=== PATIENT | male | born 1935 | race Caucasian/White ===

== ENCOUNTER 2022-10-10 16:14 | Inpatient (IN) | payer MEDICARE, SELFPAY ==
[2022-10-10] VITALS (26 sets, daily range): BP systolic 119–141; BP diastolic 66–94; PULSE 78–92; RESP 12–24; TEMP 36.6–37; O2SAT 94–100
--- NOTE | ~2022-10-10 | XR_ITS ---
EXAMINATION: XR chest 2V Exam Date/Time: 10/10/2022 18:00 CDT HISTORY: fall out of bed, Hx of aspiration Comparison: None available. RESULT: Lines, tubes, and devices: Left chest pacer with intact leads. Lungs and pleura: Patient is rotated towards the right. Senescent changes. Cardiomediastinal silhouette: Aortic tortuosity and arch calcification. Cardiomegaly. Other: No acute osseous or upper abdominal finding. Sclerotic lesion versus surgical construct in th e left proximal humeral head/shaft. Severe bilateral shoulder arthritis. Degenerative changes in the spine. IMPRESSION: No acute cardiopulmonary process. Reviewed, dictated and finalized at location K.
--- NOTE | ~2022-10-10 | CT_ITS ---
EXAMINATION: CT brain wo con DATE: 10/10/2022 17:28 INDICATION: fall from bed, unknown HI, confused? . TECHNIQUE: Computed tomography (CT) of the head was performed without intravenous contrast. The mA wa s adjusted according to patient size. Iterative reconstruction technique was employed. The dose-lengt h product was 605.33 mGy-cm. COMPARISON: None. FINDINGS: No acute intracranial hemorrhage or extra-axial fluid collection. No hydrocephalus, mass, or herniation. No acute ischemic infarct. Unremarkable dural venous sinus attenuation. No acute osseous abnormality. Small left frontal contusion. Small volume right mastoid fluid, the remaining aerated spaces are clear. Moderate atrophy and chronic white matter change. Atherosclerotic intracranial calcification. Left le ns replacement. IMPRESSION: No acute intracranial process. Reviewed, dictated and finalized at location K.
--- NOTE | ~2022-10-10 | XR_ITS ---
EXAM: XR knee RT min 4V DATE: 10/10/2022 18:08 HISTORY: R knee pain, fall out of bed . COMPARISON: None available. FINDINGS: Decreased mineralization. No fracture or dislocation. No lytic or blastic lesion. Moderate tricompartmental right knee arthritis. Chondrocalcinosis. No erosion or periosteal change. Moderate volume right knee joint fluid. Vascular calcifications. IMPRESSION: No acute osseous finding in the right knee. Moderate right knee joint effusion. Reviewed, dictated and finalized at location K. IMPRESSION: No acute osseous finding in the right knee. Moderate right knee junior nt effusion.
--- NOTE | ~2022-10-10 | US_ITS ---
EXAMINATION: US venous doppler [facility] DATE: 10/11/2022 22:26 INDICATION: Lower limb edema. TECHNIQUE: Grayscale ultrasound images without and with compression and Doppler ultrasound images of the bilateral lower extremity veins were obtained. COMPARISON: None. FINDINGS: The visualized portions of right common femoral vein, profunda (deep) femoral vein, femoral vein, pop liteal vein, peroneal veins, posterior tibial veins, and greater saphenous vein outflow are patent. The visualized portions of left common femoral vein, profunda femoral vein, femoral vein, popliteal v ein, peroneal veins, posterior tibial veins, and greater saphenous vein outflow are patent. IMPRESSION: 1. No deep venous thrombosis. Reviewed, dictated and finalized at location A.
--- NOTE | ~2022-10-10 | CT_ITS ---
EXAMINATION: CT cervical spine wo con DATE: 10/10/2022 17:28 INDICATION: fall from bed, unknown HI, c-collar in place TECHNIQUE: Computed tomography (CT) of the cervical spine was performed without intravenous contrast. Automated exposure control and iterative reconstruction technique were employed. The dose-length pro duct was 291.15 mGy-cm. COMPARISON: None. FINDINGS: Vertebral Body Alignment: Intact. Exaggerated lumbar lordosis. Grade 1 retrolisthesis at C4-5. Grade 1 anterolistheses at C6-7 and C7-T1. The listheses are presumably on a degenerative basis given the e xtensive associated degenerative change. Craniocervical and atlantoaxial alignment: Moderate degenerative change. Alignment intact. Osseous structures/fracture: No evidence of a lytic or blastic process in the visualized spine. No e vidence of acute fracture. Posterior arch surgical defects at C4 and C5. Multilevel degenerative body height loss. Vertebral body and facet fusion at C3-4. Cervical soft tissues: The paraspinal soft tissues planes are maintained. Degenerative changes: Multilevel severe degenerative disc disease. Multilevel severe facet arthropath y. Multilevel severe bilateral neural foraminal narrowing. Severe central canal stenosis at C4-5. IMPRESSION: No acute fracture or traumatic malalignment in the cervical spine. Reviewed, dictated and finalized at location K.
--- NOTE | 2022-10-10 16:19 | ECG_ITS ---
Measurements Intervals [place] Rate: 82 P: -66 NV: 142 QRS: -71 QRSD: 181 T: 100 QT: 437 QTc: 511 Interpretive Statements ELECTRONIC VENTRICULAR PACEMAKER ABNORMAL RHYTHM ECG NO PREVIOUS ECG AVAILABLE FOR COMPARISON Electronically Signed On 10-11-2022 12:07:42 CDT by Juanita Turner M.D.
--- NOTE | 2022-10-10 16:47 | ED.FALL ---
HPI - Fall General Chief Complaint: Fall <REY Radford Last Filed: 10/10/22 19:45> Stated Complaint: FALL/ UNWITNESSED <REY Radford Last Filed: 10/10/22 19:45> Source: patient, EMS and old records reviewed <REY Radford Last Filed: 10/10/22 19:45> Mode of arrival: EMS <REY Radford Last Filed: 10/10/22 19:45> Limitations: altered mental status <REY Radford Last Filed: 10/10/22 19:45> History of Present Illness HPI Narrative: Patient is an 87 y/o male who presents to the ED via EMS with report of fall. Patient lives at [facility]. Son at bedside assisted in providing information. He reports the patient attempted to get out of his bed today on his own and fell. He states patient does not ambulate on his own at baseline and fell approx 2 feet onto the ground, hitting his head. Unknown LOC. EMS was called to bring patient here. C-collar placed en route. Patient is not on any blood thinners. Son reports patient has been dealing with recurrent UTIs since July, and has intermittent episodes of confusion related to this. He has had a chronic indwelling carlson catheter since July. He has seen Dr. Youssef for this and is currently on Bactrim, started 2 days ago. Patient reports pain to R posterior knee. Denies any other areas of pain. Unable to tell me how fall occurred. <REY Radford Last Filed: 10/10/22 19:45> Related Data Allergies/Adverse Reactions: Allergies Allergy/AdvReac Type Severity Reaction Status Date / Time No Known Allergies Allergy Verified 10/10/22 18:46 <REY Radford Last Filed: 10/10/22 19:45> Review of Systems Review of Systems: ROS unobtainable: Yes unobtainable due to mental status (Limited due to dementia/altered mental status) <REY Radford Last Filed: 10/10/22 19:45> FORMERLY [facility], [facility] Past Medical History Medical History: Medical History (Updated 10/10/22 @ 19:35 by Mely Gant PA-C) History of urinary retention <Mely Gant PA-C - Last Filed: 10/10/22 19:45> Surgical History Surgical History: Surgical History (Updated 10/10/22 @ 19:35 by Mely Gant PA-C) No pertinent past surgical history <Mely Gant PA-C - Last Filed: 10/10/22 19:45> Social History Social History: Social History (Updated 10/10/22 @ 19:35 by Mely Gant PA-C) Smoking status: Never smoker <Mely Gant PA-C - Last Filed: 10/10/22 19:45> Exam Narrative: GENERAL: Elderly, frail, thin, non-toxic, in no acute distress. HEAD: Normocephalic. Small contusion to L forehead. NECK: Supple. No adenopathy, no masses. No midline spinal tenderness. RESPIRATORY: Airway patent, respirations nonlabored. Clear to auscultation bilaterally, no rales, rhonchi, wheezing. CARDIOVASCULAR: Regular rate and rhythm without murmurs, rubs, or gallops. Radial pulses 2+ and equal bilaterally. ABDOMINAL: Soft, no appreciable tenderness to palpation, nondistended, no hepatosplenomegaly. Normoactive BS. MUSCULOSKELETAL: Moves all extremities. Strength/ROM intact without gross deformities. No tenderness over hips bilaterally. SKIN: Warm, dry, normal color. No rashes. Scattered abrasions and bruising in various stages of healing. NEURO: Alert, but confused. Rambling about random events, not appropriate to conversation. Speech somewhat nasally and slurred, son reports this has been consistent since July. Cranial nerves II-XII grossly intact. No ataxic movements. PSYCHIATRIC: Occasionally agitated. <Mely Gant PA-C - Last Filed: 10/10/22 19:45> Course CRAFT SUPERINTENDENT/PA Physician Supervision For this patient encounter, I reviewed the CRAFT SUPERINTENDENT or PA documentation, treatment plan, and medical decision making; and I had [id number] time with this patient. <Chandu Ceballos MD - Last Filed: 10/10/22 18:49> Vital Signs Vital signs:
[2022-10-10 17:58] LABS: Basophils Percent Auto 0.2 % (0.2-1.2); Eosinophils Percent Auto 0.2 % (0-4.4); Hematocrit 36.2 % (42.0-52.0); Hemoglobin 11.7 g/dL (14.0-18.0); Immature Granulocyte Absolute 0.04 K/mm3 (0.00-0.031); Immature Granulocyte Percent A 0.3 % (0-0.5); Lymphocytes Absolute Auto 1.55 K/mm3 (0.9-3.2); Lymphocytes Percent Auto 12.6 % (18.3-44.2); Mean Corpuscular HGB Conc 32.3 g/dl (32-36); Mean Corpuscular Hemoglobin 30.8 pg (26-34); Mean Corpuscular Volume 95.3 fl (80-100); Mean Platelet Volume 9.7 fl (7.4-10.4); Monocytes Absolute Auto 0.6 K/mm3 (0.1-0.6); Neutrophils Percent Auto 81.7 % (45.5-73.1); Platelet Count Result 257 k/mm3 (150-375); Red Cell Distribution Width 13.3 % (11.5-14.5); White Blood Count 12.3 K/mm3 (4.5-10.0)
[2022-10-10 18:08] LABS: Alanine Aminotransferase 12 U/L (6-50); Albumin Level 2.8 g/dL (3.5-5.1); Alkaline Phosphatase 83 U/L (38-126); Anion Gap 0 mmol/L (8-16); Aspartate Amino Transferase 17 U/L (17-59); Bilirubin,Total 0.5 mg/dL (0.2-1.3); Blood Urea Nitrogen 16 mg/dL (9-20); Carbon Dioxide 36 mmol/L (22-30); Chloride 100 mmol/L (98-107); Estimated Glomerular Filt Rate > 60; Glucose 99 mg/dL (65-110); Magnesium 2.1 mg/dL (1.6-2.3); Potassium 3.7 mmol/L (3.4-5.0); Sodium 136 mmol/L (137-145)
[2022-10-10 18:10] LABS: INR 1.1; Prothrombin Time 14.1 Seconds (11.1-14.7)
[2022-10-10 18:15] LABS: Appearance Urine Turbid (Clear); Bacteria Urine None Seen /hpf; Bilirubin Urine Negative (Negative); Blood Urine 2+ (Negative); Color Urine Yellow (Yellow); Glucose Urine UA Negative (Negative); Ketones Urine Trace mg/dL (Negative); Leukocyte Esterase Ur 3+ LEU/UL (Negative); Need Manual Microscopic Reviewed; Nitrate Urine Positive (Negative); Protein Urine Trace mg/dL (Negative); Specific Grav Ur 1.013 (1.001-1.035); Squamous Epithelial Cell Urine Few /hpf (Few); WBC Urine 51-100 /hpf
[2022-10-10 18:16] LABS: Add Urine Microscopic? YES
[2022-10-10 18:22] LABS: Troponin I 0.047 ng/mL (0.000-0.034)
[2022-10-10] MEDS: SODIUM CHLORIDE 0.9% IV 1,000 ML 999 ML IV CONT (18:55)
--- NOTE | 2022-10-10 20:30 | PC.NURSE ---
This patient, Terrance Burns, was admitted to IMU Room 206-01. Patient/family oriented to hospital policies and general routines including ID bracelet, bed and alarms, visiting hours, pain management, procedures, bathroom and other care routines, personal items, smoking policy, room service/diet, and visiting hours. Information on how to activate the Rapid Response Team has been discussed. Patient/Family are encouraged to report perceived risks to care and to ask questions if they do not understand what they are told or what they should do.
--- NOTE | 2022-10-10 21:33 | PM.IMHP ---
H&P: HPI History of Present Illness Date/Time: 10/10/22 21:33 Chief Complaint: Fall Narrative: This is an 87-year-old male patient who resides at [facility]. The patient is typically bed-bound and attempted to get out of bed today on his own and fell. The patient fell approximately 2 ft when he attempted to get out of bed. It was not known if the patient lost consciousness. The patient had been placed in a C-collar prior to arrival to the emergency room. The patient is not on any anticoagulation. The patient does have a chronic indwelling Benedict catheter since this past July. Dr. aWllace has seen him and placed him on Bactrim. That was started 2 days ago. The patient is noted to have a foam dressing just above his left elbow and his right ankle. He has a history of having urinary retention and had the indwelling Benedict catheter placed. The urine appears cloudy yellow. His white count is noted to be 12.3. H&H 11.7 and 36.2. The patient has a history of confusion with UTI and is not able to answer questions. Patient is having a conversation with himself and not answering questions for the health history. His hands and feet are contracted. Neutrophil percentage 81.7. Lymph percentage 12.6. Sodium 136. Creatinine 0.50. Troponin 0.047 and 0.050. Urine was positive for UTI. The patient was started on ceftriaxone and given IV fluids. Head CT was read as no acute intracranial process. Cervical spine CT was read as no acute fracture traumatic malalignment in the cervical spine. Chest x-ray was read as no acute cardiopulmonary process. Knee x-ray was read as no acute osseous finding in the right knee moderate right knee joint effusion. The patient is being admitted to observation status on the date of service of 10/10/2022. Review of Systems Review of Systems: All systems reviewed & are unremarkable except as noted in HPI and below Constitutional: Constitutional: Reports as per HPI and Reports no additional constitutional complaints Eyes: Eyes: Reports as per HPI and Reports no additional eye complaints ENT: Reports system reviewed and no additional complaints, except as documented and Reports Normal hearing present Cardiovascular: Cardiovascular: Reports no additional cardiovascular complaints Respiratory: Respiratory: Reports no additional respiratory complaints and Reports no additional respiratory complaints Gastrointestinal: Gastrointestinal: Reports as per HPI and Reports no additional gastrointestinal complaints Musculoskeletal: Musculoskeletal: Reports no additional musculoskeletal complaints Integumentary/Breasts: Skin/Breast: Reports system reviewed and no additional complaints, except as docu and Reports as per HPI Neurologic: Reports system reviewed and no additional complaints, except as documented, Reports as per HPI and Reports Normal hearing present Psychiatric: Psychiatric: Reports no additional psychiatric complaints and Reports as per HPI Endocrine: Endocrine: Reports no additional endocrine complaints Hematologic/Lymphatic: Hematologic/Lymphatic: Reports no additional hematologic/lymphatic complaints Allergic/Immunologic: Allergic/Immunologic: Reports no additional allergic/immunologic complaints PMFSH Past Medical History Medical History (Updated 10/11/22 @ 00:15 by Christiana Neely NP) Anxiety Chronic indwelling Benedict catheter Depression History of urinary retention Iron deficiency anemia Urinary retention Surgical History Surgical History (Updated 10/11/22 @ 00:17 by Christiana Neely NP) H/O cataract extraction Family History Family History (Updated 10/11/22 @ 00:15 by Christiana Neely NP) Unknown No problems noted. Social History Social History (Updated 10/11/22 @ 00:16 by Christiana Neely NP) Social History: The patient resides at [facility]. The patient is and he is retired. He has 3 sons listed as his contact. Code status DNR Sm
[2022-10-11] VITALS (16 sets, daily range): BP systolic 124–148; BP diastolic 68–85; PULSE 61–91; RESP 16–28; TEMP 36.1–36.6; O2SAT 96–100; BMI 16.9
[2022-10-11 05:07] LABS: Basophils Percent Auto 0.2 % (0.2-1.2); Eosinophils Percent Auto 0.2 % (0-4.4); Hematocrit 36.1 % (42.0-52.0); Hemoglobin 11.6 g/dL (14.0-18.0); Immature Granulocyte Absolute 0.03 K/mm3 (0.00-0.031); Immature Granulocyte Percent A 0.3 % (0-0.5); Lymphocytes Absolute Auto 1.52 K/mm3 (0.9-3.2); Mean Corpuscular HGB Conc 32.1 g/dl (32-36); Mean Corpuscular Hemoglobin 30.7 pg (26-34); Mean Corpuscular Volume 95.5 fl (80-100); Mean Platelet Volume 9.9 fl (7.4-10.4); Monocytes Absolute Auto 0.6 K/mm3 (0.1-0.6); Monocytes Percent Auto 6.5 % (2.6-8.5); Neutrophils Absolute Auto 6.8 K/mm3 (1.3-6.7); Neutrophils Percent Auto 75.8 % (45.5-73.1); Platelet Count Result 239 k/mm3 (150-375); Red Blood Count 3.78 M/mm3 (4.6-6.20); Red Cell Distribution Width 13.3 % (11.5-14.5)
[2022-10-11 05:17] LABS: Alanine Aminotransferase 13 U/L (6-50); Albumin Level 2.9 g/dL (3.5-5.1); Alkaline Phosphatase 88 U/L (38-126); Anion Gap 3 mmol/L (8-16); Aspartate Amino Transferase 20 U/L (17-59); Bilirubin,Total 0.5 mg/dL (0.2-1.3); Blood Urea Nitrogen 12 mg/dL (9-20); Calcium 9.8 mg/dL (8.4-10.2); Carbon Dioxide 32 mmol/L (22-30); Chloride 100 mmol/L (98-107); Creatine Kinase 78 U/L (55-170); Estimated CRCL calculation 65 ml/min; Estimated Glomerular Filt Rate > 60; Glucose 85 mg/dL (65-110); Potassium 3.5 mmol/L (3.4-5.0); Sodium 135 mmol/L (137-145)
[2022-10-11] MEDS: LEVOTHYROXINE SODIUM 25 MCG TABLET PO (06:25)
[2022-10-11] MEDS: COLLAGENASE OINT 30 GM TUBE 1 APPLIC TOPICAL (10:37)
[2022-10-11] MEDS: LIDOCAINE 5% PATCH 1 PATCH TOPICAL (10:37)
--- NOTE | 2022-10-11 13:48 | PM.IMPN ---
Progress Note: A&P Assessment and Plan (1) UTI (urinary tract infection): Qualifiers: Hematuria presence: with hematuria Urinary tract infection type: acute cystitis Qualified Code(s): N30.01 - Acute cystitis with hematuria Code(s): N39.0 - Urinary tract infection, site not specified Status: Acute Assessment and Plan: The patient has a chronic indwelling Benedict catheter Urology has been consulted The patient had 2 days of Bactrim outpatient. The patient was started on Rocephin. Blood and urine cultures are pending Tailor antibiotics according to cultures and sensitivities. Patient is confused poor historian history of dementia IA pt (2) Fall from ground level: Code(s): W18.30XA - Fall on same level, unspecified, initial encounter Status: Acute Assessment and Plan: The patient is typically bed-bound. several wounds wound team is consulted. for wounds to his arm and right ankle. CT head reviewed XRay reviewed xray of knee shows- Moderate right knee joint effusion (3) Elevated troponin: Code(s): R77.8 - Other specified abnormalities of plasma proteins Status: Acute Assessment and Plan: Could be related to his fall Minimal elevation in troponin. (4) Anxiety: Code(s): F41.9 - Anxiety disorder, unspecified Status: Acute Assessment and Plan: Continue with Xanax every 6 hours p.r.n. (5) Depression: Code(s): F32.A - Status: Acute Assessment and Plan: Continue with mirtazapine and Zoloft (6) Iron deficiency anemia: Code(s): D50.9 - Iron deficiency anemia, unspecified Status: Acute Assessment and Plan: Continue to monitor H&H (7) Urinary retention: Code(s): R33.9 - Retention of urine, unspecified Status: Acute Assessment and Plan: Patient has a chronic indwelling Benedict catheter Urology has been consulted. Plan Subjective Date/time seen: 10/11/22 13:48 87[facility] The patient is typically bed-bound and attempted to get out of bed today on his own and fell.? The patient fell approximately 2 ft when he attempted to get out of bed.? It was not known if the patient lost consciousness.? The patient had been placed in a C-collar prior to arrival to the emergency room.? The patient is not on any anticoagulation.? The patient does have a chronic indwelling Benedict catheter since this past July.? Dr. Wallace has seen him and placed him on Bactrim.? That was started 2 days ago.? The patient is noted to have a foam dressing just above his left elbow and his right ankle.? He has a history of having urinary retention and had the indwelling Benedict catheter placed.? The urine appears cloudy yellow.? His white count is noted to be 12.3.? H&H 11.7 and 36.2.? The patient has a history of confusion with UTI and is not able to answer questions. Pt remains much the same today tired weak poor historian NH patient Review of Systems Review of Systems: Poor historian/ history of dementia Exam Const: General: awake, Physically active, average body habitus, malnourished, overweight and other (frail elderly ) Chest: Chest palpation & inspection: normal inspection of the chest Resp: Effort & Inspection: normal respiratory effort Auscultation: clear to auscultation bilaterally Percussion: percussion normal Cardio: Palpation: normal PMI Rate: regular rate Rhythm: regular rhythm Heart sounds: S1 normal heart sound present and S2 normal heart sound present Peripheral pulses: Peripheral pulses 2+ throughout GI: Inspection: normal to inspection Auscultation: normal bowel sounds Rectal Exam: deferred Urinary Catheter: Urinary Catheter: patent and draining and urine cloudy Skin: Other: with contractures of feet no edema of perpheries Psych: Appearance: grossly normal and disheveled Objective Data Vital Signs Vital Signs: Vital Signs - 24
--- NOTE | 2022-10-11 14:53 | WPDURCON ---
Assessment and Plan Assessment and plan (1) UTI (urinary tract infection): Qualifiers: Hematuria presence: with hematuria Urinary tract infection type: acute cystitis Qualified Code(s): N30.01 - Acute cystitis with hematuria Code(s): N39.0 - Urinary tract infection, site not specified Status: Acute Assessment and Plan: Urine culture pending. I suspect the patient is colonized as he is asymptomatic of a UTI, he is afebrile, urine is clear, he is not tender on examination and WBC is normal. I recommend only performing a UA if any symptoms arise with suspicion of a UTI such as hematuria, fever, leukocytosis or abdominal pain. (2) History of urinary retention: Code(s): Z87.898 - Personal history of other specified conditions Status: Acute Assessment and Plan: Continue monthly catheter changes at the long term. (3) Chronic indwelling Carlson catheter: Code(s): Z97.8 - Presence of other specified devices Status: Acute Assessment and Plan: No further evaluation needed from a urologist standpoint. Ok to discharge at anytime. Urology Consult Note HPI Date Seen: 10/11/22 Time Seen: 13:00 Requesting Physician: Juan J Flood MD Primary Care Provider: Liz Reddy, Consult Narrative Reason for consult: Recurrent UTI Narrative: Terrance Burns is a 87 year old male who presented to the ER via EMS on 10/10/22 for a fall out of bed at home. He is not alert and oriented today and is only responsive to voice. He is combative, but not verbal. His urine is nitrate positive and urien culture is pending at this time. He has had chronic UTI's, and has a chronic indwelling carlson catheter that is changed monthly at the long term. His WBC is 9.0, creatinine is 0.50 and is afebrile. He was seen in our office one month ago by Dr. Rodney on 09/14/22 and it was decided that he would ultimately have a catheter supervisor intermediates with monthly changes. He had a CT scan on 07/10/22 that showed BPH and a bladder stone but no other abnormalities. He is unable to state his symptoms d/t his current mental state and there is no family at the bedside right now. I obtained all information from the chart. Review of Systems Review of Systems: ROS unobtainable: Yes unobtainable due to mental status PMFSH Past Medical History Medical History Anxiety Chronic indwelling Carlson catheter Depression History of urinary retention Iron deficiency anemia Urinary retention Surgical History Surgical History H/O cataract extraction Family History Family History Unknown No problems noted. Social History Social History Social History: The patient resides at [facility]. The patient is and he is retired. He has 3 sons listed as his contact. Code status DNR Smoking status: Never smoker Alcohol intake: unknown Substance use: unknown Substance use type: unknown Lack of Transportation: No Lack of Food: Never True Current Housing: I Have Housing Concerned About Future Housing: Decline to Answer Difficulty Paying Gas/Electric Bills: Decline to Answer Difficulty Paying for Meds: Decline to Answer Currently Unemployed: Decline to Answer Education: Don't Know Difficulty w/ Childcare or Family Care: Decline to Answer Spiritual care concerns: No Meds Home Medications and Allergies Home Medications Medication Instructions Recorded Confirmed Type Santyl See Rx Instructions .Route .COMPLEX 10/10/22 10/10/22 History acetaminophen 325 mg tablet 650 mg PO Q6H PRN Pain 10/10/22 10/10/22 History alprazolam 0.25 mg tablet (Xanax) 0.25 mg PO Q6H PRN Anxiety 10/10/22 10/10/22 History aspirin 81 mg tablet,delayed 81 mg PO D
--- NOTE | 2022-10-11 15:04 | PC.NURSE ---
Pt has refused all medications and all meals. When attempting to feed pt small bite of pudding pt swats at spoon. Unable to make needs known or follow commands. Dr. Sosa notified. New orders for D5 .45%NS and bedside swallow study.
[2022-10-11] MEDS: DEXTROSE 5%/0.45% SOD CHL 1,000 ML 70 ML IV CONT (16:12)
[2022-10-11] MEDS: SILVERGEL (ELTA) 45 ML 1 APPLIC TOPICAL (16:13)
[2022-10-11] MEDS: SERTRALINE HCL 25 MG TABLET PO (20:51)
[2022-10-11] MEDS: MIRTAZAPINE 15 MG TABLET PO (20:51)
[2022-10-12] VITALS (15 sets, daily range): BP systolic 114–140; BP diastolic 57–71; PULSE 64–91; RESP 18–22; TEMP 36.2–37; O2SAT 92–96
--- NOTE | 2022-10-12 | ECHO_ITS ---
Patient Info Name: Terrance Burns Age: 87 years : 1935 Gender: Male Ht: 69 in Wt: 128 lbs BSA: 1.67 m2 HR: 113 bpm BP: 114 / 57 mmHg Heart Rhythm: Paced Exam Date: 10/12/2022 12:57 PM Exam Location: [facility]monary Patient Status: Inpatient Admit Date: 10/11/2022 Staff Ordering Physician: Madisyn Rodrigues MD On Site Coordinator: Ney Branch, ERA, RT Attending Provider: Juan J Flood MD Exam Type: CA echo doppler color flow Study Info Indications - Elevated troponin Complete two-dimensional, color flow and Doppler transthoracic echocardiogram is performed. Strain analysis performed. Summary 1. Complete two-dimensional, color flow and Doppler transthoracic echocardiogram is performed. 2. Left ventricular chamber dimension is mildly enlarged. 3. Left ventricular systolic function is severely reduced, estimated at 20-25%. 4. There is moderately increased left ventricular wall thickness. 5. Left ventricular septal wall motion is abnormal with septal motion related to pacing. 6. The left ventricular diastolic function is abnormal. 7. Global longitudinal strain is abnormal at -8 %. 8. Left atrial chamber dimension is mildly enlarged. 9. There is mild mitral valve regurgitation. 10. There is mild tricuspid valve regurgitation. Left Ventricle Left ventricular chamber dimension is mildly enlarged. Left ventricular systolic function is severely reduced, estimated at 20-25%. There is moderately increased left ventricular wall thickness. Left ventricular septal wall motion is abnormal with septal motion related to pacing. The left ventricular diastolic function is abnormal. Global longitudinal strain is abnormal at -8 %. Right Ventricle Right ventricular chamber dimension is normal. Right ventricular systolic function is normal. Left Atria Left atrial chamber dimension is mildly enlarged. Right Atria Right atrial chamber dimension is normal. Atrial Septum Intact interatrial septum visualized by color flow imaging. Aortic Valve The aortic valve is trileaflet. There is mild aortic valve sclerosis. There is no aortic valve stenosis. There is trace aortic valve regurgitation. Pulmonic Valve The pulmonic valve is normal. There is no pulmonic valve stenosis. There is trace pulmonic regurgitation. Mitral Valve The mitral valve has thickened leaflets. There is no mitral valve stenosis. There is mild mitral valve regurgitation. Tricuspid Valve The tricuspid valve leaflets are normal. There is no significant tricuspid valve stenosis. There is mild tricuspid valve regurgitation. Pericardium/Pleural The pericardium appears normal. There is trivial pericardial effusion. Inferior Vena Cava Normal inferior vena cava with >50% collapse upon inspiration consistent with normal right atrial pressure, 5 mmHg. Aorta The aortic root size at the sinus of Valsalva is normal. Left Ventricular Outflow Tract Name Value Normal LVOT 2D LVOT Diameter 2.1 cm LVOT Doppler LVOT Peak Gradient 3 mmHg LVOT Mean Gradient 1 mmHg L
[2022-10-12] MEDS: LEVOTHYROXINE SODIUM 25 MCG TABLET PO (05:45)
[2022-10-12] MEDS: DEXTROSE 5%/0.45% SOD CHL 1,000 ML 70 ML IV CONT ×2 (05:49→21:16)
[2022-10-12 08:03] LABS: Hematocrit 35.5 % (42.0-52.0); Hemoglobin 11.5 g/dL (14.0-18.0); Mean Corpuscular HGB Conc 32.4 g/dl (32-36); Mean Corpuscular Hemoglobin 30.5 pg (26-34); Mean Corpuscular Volume 94.2 fl (80-100); Mean Platelet Volume 9.8 fl (7.4-10.4); Platelet Count Result 238 k/mm3 (150-375); Red Blood Count 3.77 M/mm3 (4.6-6.20); Red Cell Distribution Width 13.3 % (11.5-14.5); White Blood Count 17.1 K/mm3 (4.5-10.0)
[2022-10-12 08:20] LABS: Anion Gap 1 mmol/L (8-16); Blood Urea Nitrogen 13 mg/dL (9-20); Calcium 9.4 mg/dL (8.4-10.2); Carbon Dioxide 34 mmol/L (22-30); Chloride 98 mmol/L (98-107); Estimated CRCL calculation 89 ml/min; Estimated Glomerular Filt Rate > 60; Glucose 122 mg/dL (65-110); Potassium 3.2 mmol/L (3.4-5.0); Sodium 133 mmol/L (137-145)
--- NOTE | 2022-10-12 08:47 | PCSTNOTE ---
Patient refused Bedside swallow evaluation at 8:15 am saying, Come back later, I'm not going to work for you. Will attempt later.
[2022-10-12] MEDS: LACTULOSE 20 GM/30 ML UDC 10 GM PO (10:05)
[2022-10-12] MEDS: CHOLECALCIFEROL 1,000 UNITS TABLET 1000 UNITS PO (10:06)
[2022-10-12] MEDS: POTASSIUM CHLORIDE 20 MEQ PACKET (FOR LIQUID) 40 MEQ PO (10:06)
[2022-10-12] MEDS: DICLOFENAC SODIUM 1% 100 GM GEL (*BKC) 1 APPLIC TOPICAL (10:07)
[2022-10-12] MEDS: COLLAGENASE OINT 30 GM TUBE 1 APPLIC TOPICAL (10:08)
[2022-10-12] MEDS: SILVERGEL (ELTA) 45 ML 1 APPLIC TOPICAL (10:08)
[2022-10-12] MEDS: ASPIRIN 81 MG ENTERIC TABLET PO (10:17)
[2022-10-12] MEDS: LIDOCAINE 5% PATCH 1 PATCH TOPICAL (10:17)
--- NOTE | 2022-10-12 11:27 | PCSTNOTE ---
Please refer to the Bedside Swallow Evaluation in the EMR. Please note, silent aspiration cannot be ruled out at bedside.
--- NOTE | 2022-10-12 11:48 | PM.IMPN ---
Progress Note: A&P Assessment and Plan (1) Chronic indwelling Benedict catheter: Code(s): Z97.8 - Presence of other specified devices Status: Acute (2) Urinary retention: Code(s): R33.9 - Retention of urine, unspecified Status: Acute (3) Altered mental status: Qualifiers: Altered mental status type: unspecified Qualified Code(s): R41.82 - Altered mental status, unspecified Code(s): R41.82 - Altered mental status, unspecified Status: Acute (4) Fall from ground level: Code(s): W18.30XA - Fall on same level, unspecified, initial encounter Status: Acute Plan 87[facility] [place] typically bed-bound and attempted to get out of bed on his own and fell.? The patient fell approximately 2 ft when he attempted to get out of bed.? It was not known if the patient lost consciousness.? The patient was placed in a C-collar prior to arrival to the emergency room.? The patient is not on any anticoagulation.? The patient does have a chronic indwelling Benedict catheter since this past July. Was started n Bactrim prior to arrival. Seen by Urology here, advised against check UA for infection unless there is systemic symptoms. Urine Culture turned out negative but has worsening leucocytosis. Knee Xray with moderate knee effusion.? 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 Will monitor c/w Remeron D/C fluids 2Right Knee Effusion: Ortho consult c/w Ceftriaxone for now Worsening Leucocytosis 3Chronic Benedict: C/w Benedict UTI ruled out Urology has cleared for discharge 4)Hypokalemia:Supplement potassium 5)Several Pressure Ulcers: Local wound care 6)Hypothyroidism:c/w Levothyroxine 7)Code:DNR 8)DVT ppx:Hep SQ 9)Dispo:pending improvement Time Spent With Patient Time with patient: 15 - 25 minutes Subjective Date/time seen: 10/12/22 11:48 Interval history: patient lethargic, didn't respond to voice stimuli Swollen extremities Review of Systems Review of Systems: ROS unobtainable: Yes unobtainable due to mental status Exam Const: Other: lethargic HENMT: Mouth: Yes moist mucous membranes Eyes: Other: anicteric sclera Neck: Neck: supple Resp: Other: decreased breath sounds B/L Cardio: Rate: regular rate Rhythm: regular rhythm GI: GI Palp: Yes Soft to palpation Auscultation: normal bowel sounds Urinary Catheter: Urinary Catheter: patent and draining Skin: Wounds: wounds noted Other: scattered bruising Extrem: General: pedal edema Objective Data Vital Signs Vital Signs: Vital Signs - 24 hr 10/11/22 12:00 10/11/22 12:00 10/11/22 12:00 Temperature 97.0 F L Pulse Rate 67 78 Respiratory Rate 16 Blood Pressure 134/85 Pulse Oximetry 100 Oxygen Delivery Room Air 10/11/22 14:00 10/11/22 16:00 10/11/22 16:00 Temperature Pulse Rate 65 61 Respiratory Rate Blood Pressure Pulse Oximetry Oxygen Delivery Room Air 10/11/22 16:00 10/11/22 18:00 10/11/22 19:41 Temperature 97.0 F L Pulse Rate 72 61 Respiratory Rate 16 Blood Pressure 147/75 H Pulse Oximetry 96 98 Oxygen Delivery Room Air 10/11/22 20:33 10/11/22 20:00 10/11/22 22:00 Temperature 97.3 F L Pulse Rate 70 71 81 Respiratory Rate 20 Blood Pressure 148/73 H Pulse Oximetry 98 Oxygen Delivery 10/11/22 23:43 10/12/22 00:00 10/12/22 00:00 Temperature 97.4 F L Pulse Rate 86 90 Respiratory Rate 20 Blood Pressure 143/68 H Pulse Oximetry 97 Oxygen Delivery Room Air 10/12/22 02:00 10/12/22 04:00 10/12/22 04:00 Temperature Pulse Rate 85 73 72 Respiratory Rate Blood Pressure Pulse Oximetry Oxygen Delivery Room Air 10/12/22 05:33 10/12/22 06:00 10/12/22 07:56 Temperature 97.2 F L 98.6 F Pulse Rate 70 74 75 Respiratory Rate 20 22 H Blood Pressure 140/70 132/71 Pulse Oximetry 95 94 Oxygen Delivery Intake/Output Intake/
--- NOTE | 2022-10-12 12:55 | PM.CNOR ---
Assessment and Plan Assessment and plan (1) Effusion of knee joint right: Code(s): M25.461 - Effusion, right knee Status: Acute Assessment and Plan: History, exam and radiographs reviewed. Patient with altered mental status, no family at the bedside. Unable to review images with patient given current mental status. Radiographs the right knee reveal osteopenia, chondrocalcinosis of the meniscus and moderate knee joint effusion. No evidence of fracture, dislocation or acute abnormalities on radiographs. On exam, patient has a moderate right knee joint effusion. No erythema, no warmth. Patient has passive range of motion with flexion extension without signs of pain. No complaints of pain on exam with palpation or ROM. Patient is nonambulatory at baseline. Given negative radiographs and no obvious signs of a septic knee joint, suspect that knee joint effusion is due to chronic arthritic findings and chondrocalcinosis versus fall with possible hemarthrosis. Recommend ice of the knee, Abdoul wrap application for compression. Elevation. Pain control as needed however at this time, patient has no signs of pain of the knee with assessment. If worsening leukocytosis, development of redness to the knee joint or inability flex/extend knee in PROM without severe pain, would recommend moving forward with aspiration of the right knee joint. No immediate need for aspiration or further imaging at this time. Will continue to follow. (2) Urinary retention: Code(s): R33.9 - Retention of urine, unspecified Status: Acute (3) Chronic indwelling Benedict catheter: Code(s): Z97.8 - Presence of other specified devices Status: Acute (4) Altered mental status: Qualifiers: Altered mental status type: unspecified Qualified Code(s): R41.82 - Altered mental status, unspecified Code(s): R41.82 - Altered mental status, unspecified Status: Acute (5) History of urinary retention: Code(s): Z87.898 - Personal history of other specified conditions Status: Acute Assessment and Plan: Urology following as patient has a chronic indwelling Benedict catheter. Patient was started on Bactrim prior to arrival to the hospital. Per Urology, no immediate concern for UTI. (6) Iron deficiency anemia: Code(s): D50.9 - Iron deficiency anemia, unspecified Status: Acute Plan Reviewed history, labs, radiographs with attending physician, Dr. Phelan.No further recommendations aside from plan as indicated above. Agrees with current plan as indicated above. History of Present Illness HPI Consult date: 10/12/22 Chief complaint: glf,ams,uti,eleavted troponin Narrative: 87-year-old male admitted from a nursing facility after a fall out of his bed. Per the medical record, the patient fell 2 ft out of bed and is unknown as the patient lost consciousness. Upon presentation to the emergency room he was complaining of right knee pain. Radiographs of the right knee obtained reveals osteopenia, chondrocalcinosis of the meniscus and a moderate right knee joint effusion. Orthopedic consult requested for further evaluation given patient has leukocytosis. Patient is rousable to voice however unable to answer questions appropriately. HPI and medical history obtained from the medical chart. Review of Systems Review of Systems: ROS unobtainable: Yes unobtainable due to mental status PMFSH Past Medical History Medical History (Updated 10/12/22 @ 13:05 by DEB Tolentino) Anxiety Chronic indwelling Benedict catheter Depression Effusion of knee joint right Foot drop, bilateral History of urinary retention Iron deficiency anemia Urinary retention Surgical History Surgical History H/O cataract extraction Family History Family History Unknown No problems noted. Social Histor
[2022-10-12] MEDS: FERROUS SULFATE 324 MG TABLET PO (13:53)
[2022-10-12] MEDS: HEPARIN SODIUM 5,000 UNITS/ML VIAL 5000 UNITS SUB-Q (21:16)
[2022-10-12] MEDS: SERTRALINE HCL 25 MG TABLET PO (21:16)
[2022-10-12] MEDS: MIRTAZAPINE 15 MG TABLET PO (21:17)
[2022-10-13] VITALS (17 sets, daily range): BP systolic 118–158; BP diastolic 58–82; PULSE 67–99; RESP 16–24; TEMP 36.1–36.5; O2SAT 93–100
[2022-10-13 04:37] LABS: Basophils Percent Auto 0.2 % (0.2-1.2); Eosinophils Absolute Auto 0.1 K/mm3 (0-0.3); Eosinophils Percent Auto 0.7 % (0-4.4); Hematocrit 34.1 % (42.0-52.0); Hemoglobin 10.9 g/dL (14.0-18.0); Immature Granulocyte Absolute 0.03 K/mm3 (0.00-0.031); Immature Granulocyte Percent A 0.3 % (0-0.5); Lymphocytes Absolute Auto 1.84 K/mm3 (0.9-3.2); Lymphocytes Percent Auto 20.4 % (18.3-44.2); Mean Corpuscular Volume 96.9 fl (80-100); Mean Platelet Volume 10.2 fl (7.4-10.4); Monocytes Absolute Auto 0.4 K/mm3 (0.1-0.6); Monocytes Percent Auto 4.8 % (2.6-8.5); Neutrophils Absolute Auto 6.6 K/mm3 (1.3-6.7); Neutrophils Percent Auto 73.6 % (45.5-73.1); Platelet Count Result 222 k/mm3 (150-375); Red Blood Count 3.52 M/mm3 (4.6-6.20); Red Cell Distribution Width 13.3 % (11.5-14.5)
[2022-10-13 04:49] LABS: Anion Gap 1 mmol/L (8-16); Blood Urea Nitrogen 12 mg/dL (9-20); Calcium 9.4 mg/dL (8.4-10.2); Carbon Dioxide 31 mmol/L (22-30); Chloride 100 mmol/L (98-107); Estimated CRCL calculation 89 ml/min; Estimated Glomerular Filt Rate > 60; Glucose 94 mg/dL (65-110); Potassium 3.5 mmol/L (3.4-5.0); Sodium 132 mmol/L (137-145)
[2022-10-13] MEDS: LEVOTHYROXINE SODIUM 25 MCG TABLET PO (05:51)
[2022-10-13] MEDS: ASPIRIN 81 MG ENTERIC TABLET PO (08:36)
[2022-10-13] MEDS: CHOLECALCIFEROL 1,000 UNITS TABLET 1000 UNITS PO (08:36)
[2022-10-13] MEDS: COLLAGENASE OINT 30 GM TUBE 1 APPLIC TOPICAL (08:37)
[2022-10-13] MEDS: LACTULOSE 20 GM/30 ML UDC 10 GM PO (08:39)
[2022-10-13] MEDS: DICLOFENAC SODIUM 1% 100 GM GEL (*BKC) 1 APPLIC TOPICAL (08:39)
[2022-10-13] MEDS: SILVERGEL (ELTA) 45 ML 1 APPLIC TOPICAL (08:40)
[2022-10-13] MEDS: LIDOCAINE 5% PATCH 1 PATCH TOPICAL (08:40)
[2022-10-13] MEDS: HEPARIN SODIUM 5,000 UNITS/ML VIAL 5000 UNITS SUB-Q ×2 (08:53→20:51)
[2022-10-13] MEDS: FERROUS SULFATE 324 MG TABLET PO (11:43)
[2022-10-13] MEDS: DEXTROSE 5%/0.45% SOD CHL 1,000 ML 70 ML IV CONT ×2 (11:43→20:54)
--- NOTE | 2022-10-13 12:34 | PM.IMPN ---
Progress Note: A&P Assessment and Plan (1) Chronic indwelling Benedict catheter: Code(s): Z97.8 - Presence of other specified devices Status: Acute (2) Urinary retention: Code(s): R33.9 - Retention of urine, unspecified Status: Acute (3) Altered mental status: Qualifiers: Altered mental status type: unspecified Qualified Code(s): R41.82 - Altered mental status, unspecified Code(s): R41.82 - Altered mental status, unspecified Status: Acute (4) Fall from ground level: Code(s): W18.30XA - Fall on same level, unspecified, initial encounter Status: Acute Plan 87[facility] [place] typically bed-[facility] and attempted to get out of bed on his own and fell.? The patient fell approximately 2 ft when he attempted to get out of bed.? It was not known if the patient lost consciousness.? The patient was placed in a C-collar prior to arrival to the emergency room.? The patient is not on any anticoagulation.? The patient does have a chronic indwelling Benedict catheter since this past July. Was started n Bactrim prior to arrival. Seen by Urology here, advised against check UA for infection unless there is systemic symptoms. Urine Culture turned out negative but has worsening leucocytosis. Knee Xray with moderate knee effusion.? 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 Exam Const: General: cooperative, comfortable, no acute distress, well developed, alert, awake, Physically active, average body habitus, well nourished, malnourished, overweight and other (frail elderly ) Nutritional Appearance: average body habitus, well nourished, malnourished and overweight Orientation/consciousness: oriented to person, oriented to place, oriented to time and patient oriented x3 Other: lethargic HENMT: Head: normal to inspection, No palpable skull fracture present, normocephalic and atraumatic Ears: hearing grossly normal bilaterally, external ears normal and hearing grossly impaired Face/Nose/Sinus: Normal external nose present and Normal nares present Mouth: Yes moist mucous membranes Eyes: General: appearance normal, both eyes and all related structures Alignment and Position: alignment normal Periorbital: periorbital findings normal Eyelids: eyelids normal Conjunctivae: conjunctivae normal Sclera: sclerae normal Cornea: corneas normal Pupils: Equal, round and reactive pupils present and Pupil accommodation reflex normal EOM: EOMs intact bilaterally Other: anicteric sclera Neck: Neck: normal visual inspection, full ROM, no lymphadenopathy, trachea midline and supple Thyroid: thyroid normal Carotids: normal carotid upstroke Lymphatic: no lymphadenopathy noted Chest: Chest palpation & inspection: normal inspection of the chest Resp: Effort & Inspection: normal respiratory effort Auscultation: clear to auscultation bilaterally Percussion: percussion normal Other: decreased breath sounds B/L Cardio: Palpation: normal PMI Rate: regular rate Rhythm: regular rhythm Heart sounds: S1 normal heart sound present and S2 normal heart sound present Peripheral pulses: Peripheral pulses 2+ throughout GI: Inspection: normal to inspection Auscultation: normal bowel sounds Rectal Exam: deferred : General: Yes no CVA tenderness Urinary Catheter: Urinary Catheter: patent and draining Back/Spine/Pelvis: Back: no CVA tenderness Cervical Spine: cervical ROM normal Thoracic/Lumbar Spine: thoracic
--- NOTE | 2022-10-13 15:09 | PCNFU ---
Nutrition Follow-Up Complete: Inadequate oral intake related to altered mental status, lethargy, increased needs from wounds as evidenced by PO intakes 0%, wound reports Goal: Improved PO intake at least 50% meals by next follow up - Meeting goal Maintain weight Goal is being met Pt current nutrition is Puree, regular diet. Slightly thick liquids. 75% breakfast, 100% lunch today. Improving. Nutrition recommendation: Add Darrick BID for pressure injuries. 90 kcals and 2.5 g protein with arginine, glutamine and collagen for wound healing Last recorded weight is 58.5 kg. Weight up from 51.9 kg at admit Bowel Motility: No BMs charted Labs Reviewed: Hgb 10.9, Hct 34.1, Na 132, Cre 0.4 Meds Noted: Mirtazipine, milk of magnesia Skin: Multiple pressure areas: Unstageable sacrum. DTI heel. Stage II Buttock, ischium, ankle Additional Notes: Intakes improving. Monitoring intakes, weights, labs, plan of care, supplement tolerance Follow up in 3 days
[2022-10-13] MEDS: MIRTAZAPINE 15 MG TABLET PO (20:53)
[2022-10-13] MEDS: SERTRALINE HCL 25 MG TABLET PO (20:54)
[2022-10-14] VITALS (13 sets, daily range): BP systolic 114–152; BP diastolic 57–90; PULSE 75–92; RESP 14–22; TEMP 36.1–36.7; O2SAT 95–100
[2022-10-14] MEDS: LEVOTHYROXINE SODIUM 25 MCG TABLET PO (06:02)
[2022-10-14] MEDS: ASPIRIN 81 MG ENTERIC TABLET PO (09:19)
[2022-10-14] MEDS: CHOLECALCIFEROL 1,000 UNITS TABLET 1000 UNITS PO (09:20)
[2022-10-14] MEDS: LACTULOSE 20 GM/30 ML UDC 10 GM PO (09:21)
[2022-10-14] MEDS: NYSTATIN OINTMENT 15 GM TUBE 1 APPLIC TOPICAL (09:24)
[2022-10-14] MEDS: COLLAGENASE OINT 30 GM TUBE 1 APPLIC TOPICAL (09:24)
[2022-10-14] MEDS: SILVERGEL (ELTA) 45 ML 1 APPLIC TOPICAL (09:24)
[2022-10-14] MEDS: DICLOFENAC SODIUM 1% 100 GM GEL (*BKC) 1 APPLIC TOPICAL (09:24)
[2022-10-14] MEDS: HEPARIN SODIUM 5,000 UNITS/ML VIAL 5000 UNITS SUB-Q ×2 (09:25→21:33)
[2022-10-14 09:33] LABS: Basophils Percent Auto 0.2 % (0.2-1.2); Eosinophils Percent Auto 0.2 % (0-4.4); Hematocrit 37.4 % (42.0-52.0); Immature Granulocyte Absolute 0.04 K/mm3 (0.00-0.031); Immature Granulocyte Percent A 0.3 % (0-0.5); Lymphocytes Percent Auto 8.2 % (18.3-44.2); Mean Corpuscular HGB Conc 32.1 g/dl (32-36); Mean Corpuscular Hemoglobin 30.3 pg (26-34); Mean Corpuscular Volume 94.4 fl (80-100); Mean Platelet Volume 10.3 fl (7.4-10.4); Monocytes Absolute Auto 0.6 K/mm3 (0.1-0.6); Monocytes Percent Auto 5.1 % (2.6-8.5); Neutrophils Absolute Auto 10.4 K/mm3 (1.3-6.7); Platelet Count Result 247 k/mm3 (150-375); Red Blood Count 3.96 M/mm3 (4.6-6.20); Red Cell Distribution Width 13.2 % (11.5-14.5); White Blood Count 12.1 K/mm3 (4.5-10.0)
[2022-10-14 09:50] LABS: Anion Gap 1 mmol/L (8-16); Blood Urea Nitrogen 10 mg/dL (9-20); Calcium 9.8 mg/dL (8.4-10.2); Carbon Dioxide 34 mmol/L (22-30); Chloride 98 mmol/L (98-107); Estimated CRCL calculation 89 ml/min; Estimated Glomerular Filt Rate > 60; Glucose 140 mg/dL (65-110); Potassium 3.2 mmol/L (3.4-5.0); Sodium 133 mmol/L (137-145)
--- NOTE | 2022-10-14 10:55 | PM.IMPN ---
Progress Note: A&P Assessment and Plan (1) Chronic indwelling Benedict catheter: Code(s): Z97.8 - Presence of other specified devices Status: Acute (2) Urinary retention: Code(s): R33.9 - Retention of urine, unspecified Status: Acute (3) Altered mental status: Qualifiers: Altered mental status type: unspecified Qualified Code(s): R41.82 - Altered mental status, unspecified Code(s): R41.82 - Altered mental status, unspecified Status: Acute (4) Fall from ground level: Code(s): W18.30XA - Fall on same level, unspecified, initial encounter Status: Acute Plan 87[facility] typically [facility] and attempted to get out of bed on his own and fell.? The patient fell approximately 2 ft when he attempted to get out of bed.? It was not known if the patient lost consciousness.? The patient was placed in a C-collar prior to arrival to the emergency room.? The patient is not on any anticoagulation.? The patient does have a chronic indwelling Benedict catheter since this past July. Was started n Bactrim prior to arrival. Seen by Urology here, advised against check UA for infection unless there is systemic symptoms. Urine Culture turned out negative but has worsening leucocytosis. Knee Xray with moderate knee effusion.? 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 Exam Const: General: cooperative, comfortable, no acute distress, well developed, alert, awake, Physically active, average body habitus, well nourished, malnourished, overweight and other (frail elderly ) Nutritional Appearance: average body habitus, well nourished, malnourished and overweight Orientation/consciousness: oriented to person, oriented to place, oriented to time and patient oriented x3 Other: lethargic HENMT: Head: normal to inspection, No palpable skull fracture present, normocephalic and atraumatic Ears: hearing grossly normal bilaterally, external ears normal and hearing grossly impaired Face/Nose/Sinus: Normal external nose present and Normal nares present Mouth: Yes moist mucous membranes Eyes: General: appearance normal, both eyes and all related structures Alignment and Position: alignment normal Periorbital: periorbital findings normal Eyelids: eyelids normal Conjunctivae: conjunctivae normal Sclera: sclerae normal Cornea: corneas normal Pupils: Equal, round and reactive pupils present and Pupil accommodation reflex normal EOM: EOMs intact bilaterally Other: anicteric sclera Neck: Neck: normal visual inspection, full ROM, no lymphadenopathy, trachea midline and supple Thyroid: thyroid normal Carotids: normal carotid upstroke Lymphatic: no lymphadenopathy noted Chest: Chest palpation & inspection: normal inspection of the chest Resp: Effort & Inspection: normal respiratory effort Auscultation: clear to auscultation bilaterally Percussion: percussion normal Other: decreased breath sounds B/L Cardio: Palpation: normal PMI Rate: regular rate Rhythm: regular rhythm Heart sounds: S1 normal heart sound present and S2 normal heart sound present Peripheral pulses: Peripheral pulses 2+ throughout GI: Inspection: normal to inspection Auscultation: normal bowel sounds Rectal Exam: deferred : General: Yes no CVA tenderness Urinary Catheter: Urinary Catheter: patent and draining Back/Spine/Pelvis: Back: no CVA tenderness Cervical Spine: cervical ROM normal Thoracic/Lumbar Spine: thoracic and lumb
[2022-10-14] MEDS: LIDOCAINE 5% PATCH 1 PATCH TOPICAL (11:37)
[2022-10-14] MEDS: POTASSIUM CHLORIDE 20 MEQ PACKET (FOR LIQUID) 40 MEQ PO (13:02)
[2022-10-14] MEDS: FERROUS SULFATE 324 MG TABLET PO (13:03)
[2022-10-14] MEDS: CEFDINIR 300 MG CAPSULE PO (16:55)
[2022-10-14] MEDS: DEXTROSE 5%/0.45% SOD CHL 1,000 ML 70 ML IV CONT (16:55)
[2022-10-14] MEDS: MIRTAZAPINE 15 MG TABLET PO (21:33)
[2022-10-14] MEDS: ALPRAZolam (*CRX) 0.25 MG TABLET PO (21:33)
[2022-10-14] MEDS: SERTRALINE HCL 25 MG TABLET PO (21:33)
[2022-10-15] VITALS (7 sets, daily range): BP systolic 125–142; BP diastolic 56–58; PULSE 61–87; RESP 16–20; TEMP 36.2–36.8; O2SAT 95–99
[2022-10-15 05:22] LABS: Basophils Percent Auto 0.2 % (0.2-1.2); Eosinophils Percent Auto 0.5 % (0-4.4); Hematocrit 35.5 % (42.0-52.0); Hemoglobin 11.3 g/dL (14.0-18.0); Immature Granulocyte Absolute 0.03 K/mm3 (0.00-0.031); Immature Granulocyte Percent A 0.3 % (0-0.5); Lymphocytes Percent Auto 17.2 % (18.3-44.2); Mean Corpuscular HGB Conc 31.8 g/dl (32-36); Mean Corpuscular Volume 97.5 fl (80-100); Mean Platelet Volume 10.1 fl (7.4-10.4); Monocytes Absolute Auto 0.7 K/mm3 (0.1-0.6); Monocytes Percent Auto 7.4 % (2.6-8.5); Neutrophils Absolute Auto 6.5 K/mm3 (1.3-6.7); Neutrophils Percent Auto 74.4 % (45.5-73.1); Platelet Count Result 216 k/mm3 (150-375); Red Blood Count 3.64 M/mm3 (4.6-6.20); Red Cell Distribution Width 13.3 % (11.5-14.5); White Blood Count 8.7 K/mm3 (4.5-10.0)
[2022-10-15 05:32] LABS: Anion Gap 1 mmol/L (8-16); Blood Urea Nitrogen 11 mg/dL (9-20); Calcium 9.8 mg/dL (8.4-10.2); Carbon Dioxide 31 mmol/L (22-30); Chloride 101 mmol/L (98-107); Estimated CRCL calculation 113 ml/min; Estimated Glomerular Filt Rate > 60; Glucose 100 mg/dL (65-110); Potassium 3.6 mmol/L (3.4-5.0); Sodium 133 mmol/L (137-145)
[2022-10-15] MEDS: DEXTROSE 5%/0.45% SOD CHL 1,000 ML 70 ML IV CONT (05:56)
[2022-10-15] MEDS: LEVOTHYROXINE SODIUM 25 MCG TABLET PO (05:57)
--- NOTE | 2022-10-15 10:12 | PM.PNORT ---
Progress Note: A&P Assessment and Plan (1) Effusion of knee joint right: Code(s): M25.461 - Effusion, right knee Status: Acute Assessment and Plan: Radiographs the right knee reveal osteopenia, chondrocalcinosis of the meniscus and moderate knee joint effusion. No evidence of fracture, dislocation or acute abnormalities on radiographs. On exam, patient has significant improvement in the right knee joint effusion. Mild effusion noted. No erythema. No warmth. AROM/PROM without pain. Pain control as needed however at this time, patient has no signs of pain of the knee with assessment. No surgical indication. Would advise against aspiration at this time given significant improvement. Thank you for allowing us to assist in the care of this patient. Please do not hesitate to contact us for any questions. Patient may follow up if needed in the outpatient orthopedic clinic. (2) Urinary retention: Code(s): R33.9 - Retention of urine, unspecified Status: Acute (3) Chronic indwelling Benedict catheter: Code(s): Z97.8 - Presence of other specified devices Status: Acute (4) Altered mental status: Qualifiers: Altered mental status type: unspecified Qualified Code(s): R41.82 - Altered mental status, unspecified Code(s): R41.82 - Altered mental status, unspecified Status: Acute (5) History of urinary retention: Code(s): Z87.898 - Personal history of other specified conditions Status: Acute (6) Iron deficiency anemia: Code(s): D50.9 - Iron deficiency anemia, unspecified Status: Acute Plan Reviewed history, labs, radiographs with attending physician, Dr. Phelan.No further recommendations aside from plan as indicated above. Agrees with current plan as indicated above. Subjective Subjective Date/Time Seen: 10/15/22 10:12 Interval history: Improved mentation. Sitting up in bed with nursing assisting with breakfast. Denies knee pain. Appears comfortable. Review of Systems Review of Systems: All systems reviewed & are unremarkable except as noted in HPI and below Exam Const: General: cooperative, no acute distress and ill appearing chronically Nutritional Appearance: malnourished Extrem: Right lower extremity: knee Details: swelling (mild knee joint effusion- significant improvement ), abnormal ROM (unable to follow commands for AROM testing ) Details: no pain with passive ROM and able to extend lower leg actively and crepitus (mild ); no ecchymosis, no deformity and no unusual warmth, lower leg Details: normal to inspection and no edema; no erythema, no tenderness, no ecchymosis and no crepitus, ankle and foot (foot drop, edema noted ) Details: normal capillary refill and vascular exam Details: dorsalis pedis pulse present Left lower extremity: foot (foot drop, edmea ) Details: normal capillary refill, vascular exam Details: dorsalis pedis pulse present and other (wound on the lateral malleolus, quarter size, slough covering ) Objective Data Vital Signs Vital Signs: Vital Signs - 24 hr 10/14/22 12:00 10/14/22 12:00 10/14/22 12:00 Temperature 36.4 C Pulse Rate 79 75 Respiratory Rate 14 Blood Pressure 152/68 H Pulse Oximetry 96 Oxygen Delivery Room Air 10/14/22 14:14 10/14/22 15:50 10/14/22 16:00 Temperature Pulse Rate 81 87 Respiratory Rate Blood Pressure Pulse Oximetry Oxygen Delivery Room Air 10/14/22 16:00 10/14/22 18:16 10/14/22 20:00 Temperature 36.1 C L 36.3 C L Pulse Rate 82 86 82 Respiratory Rate 22 H 16 Blood Pressure 138/90 114/57 L Pulse Oximetry 97 98 Oxygen Delivery 10/14/22 23:21 10/14/22 20:00 10/14/22 22:00 Temperature 36.7 C Pulse Rate 83 81 76 Respiratory Rate 16 Blood Pressure 144/68 H Pulse Oximetry 95 Oxygen Delivery 10/15/22 00:00 10/15/22 02:00 10/15/22 04:00 Temperature Pulse Rate 67 68 61 Respiratory Rate Blood Pressure Pu
[2022-10-15] MEDS: CEFDINIR 300 MG CAPSULE PO (10:59)
[2022-10-15] MEDS: CHOLECALCIFEROL 1,000 UNITS TABLET 1000 UNITS PO (10:59)
[2022-10-15] MEDS: COLLAGENASE OINT 30 GM TUBE 1 APPLIC TOPICAL (11:00)
[2022-10-15] MEDS: DICLOFENAC SODIUM 1% 100 GM GEL (*BKC) 1 APPLIC TOPICAL (11:00)
[2022-10-15] MEDS: HEPARIN SODIUM 5,000 UNITS/ML VIAL 5000 UNITS SUB-Q (11:00)
[2022-10-15] MEDS: ASPIRIN 81 MG ENTERIC TABLET PO (11:00)
[2022-10-15] MEDS: LACTULOSE 20 GM/30 ML UDC 10 GM PO (11:01)
[2022-10-15] MEDS: SILVERGEL (ELTA) 45 ML 1 APPLIC TOPICAL (11:02)
[2022-10-15] MEDS: FERROUS SULFATE 324 MG TABLET PO (11:14)
--- NOTE | 2022-10-15 11:48 | PCNFU ---
Nutrition Follow-Up Complete: Inadequate oral intake related to altered mental status, lethargy, increased needs from wounds as evidenced by PO intakes 0%, wound reports Goal:Improved PO intake at least 50% meals by next follow up. Pt meeting goal. Maintain weight Pt current nutrition is Pureed level 4, level 2 liquids. Ensure Enlive TID with meals, SANDRA BID. Nutrition recommendation: continue with current plan of care Last recorded weight is 58.1 kg - increase in 7kg from admission. Bowel Motility: +BM 10/14 Labs Reviewed: Hgb:11.3, HCT:35.5, NA:133, Cr:0.3 Meds Noted: remeron, lactulose Skin: Stage II to ankle, stage I to heel, unstageable to sacrum, stage III to ischium Additional Notes: Pt continues on a pureed diet, intake averages 50%, supplements in place. Encourage po intake. Monitoring intakes, weights, labs, plan of care, supplement tolerance Follow up in 3 days
[2022-10-15] MEDS: LIDOCAINE 5% PATCH 1 PATCH TOPICAL (12:20)
--- NOTE | 2022-10-15 12:40 | PM.DS ---
DS: Admitting Diagnosis Discharge Date October 15, 2022 Admitting Diagnosis UTI altered mental status DS: Discharge Diagnosis Discharge Diagnosis (1) Chronic indwelling Benedict catheter: Code(s): Z97.8 - Presence of other specified devices Status: Acute (2) Urinary retention: Code(s): R33.9 - Retention of urine, unspecified Status: Acute (3) Altered mental status: Qualifiers: Altered mental status type: unspecified Qualified Code(s): R41.82 - Altered mental status, unspecified Code(s): R41.82 - Altered mental status, unspecified Status: Acute (4) Fall from ground level: Code(s): W18.30XA - Fall on same level, unspecified, initial encounter Status: Acute DS: Summary Hospital Course Hospital Course: Patient was admitted for altered mental status started on antibiotics for UTI and possible septic arthritis, Ortho was consulted and did not feel there was anything infectious in his knee. Antibiotics were continued cultures were negative. Nonetheless patient improved so he will be continued on a couple more days of Omnicef and he can be discharged. Altered mental status was likely related to an exacerbation of dementia. Time Spent with Patient Time attestation: Total time spent providing and/or coordinating discharge services: Exam Const: General: cooperative, comfortable, no acute distress, well developed, alert, awake, Physically active, average body habitus, well nourished, malnourished, overweight and other (frail elderly ) Nutritional Appearance: average body habitus, well nourished, malnourished and overweight Orientation/consciousness: oriented to person, oriented to place, oriented to time and patient oriented x3 Other: lethargic HENMT: Head: normal to inspection, No palpable skull fracture present, normocephalic and atraumatic Ears: hearing grossly normal bilaterally, external ears normal and hearing grossly impaired Face/Nose/Sinus: Normal external nose present and Normal nares present Mouth: Yes moist mucous membranes Eyes: General: appearance normal, both eyes and all related structures Alignment and Position: alignment normal Periorbital: periorbital findings normal Eyelids: eyelids normal Conjunctivae: conjunctivae normal Sclera: sclerae normal Cornea: corneas normal Pupils: Equal, round and reactive pupils present and Pupil accommodation reflex normal EOM: EOMs intact bilaterally Other: anicteric sclera Neck: Neck: normal visual inspection, full ROM, no lymphadenopathy, trachea midline and supple Thyroid: thyroid normal Carotids: normal carotid upstroke Lymphatic: no lymphadenopathy noted Chest: Chest palpation & inspection: normal inspection of the chest Resp: Effort & Inspection: normal respiratory effort Auscultation: clear to auscultation bilaterally Percussion: percussion normal Other: decreased breath sounds B/L Cardio: Palpation: normal PMI Rate: regular rate Rhythm: regular rhythm Heart sounds: S1 normal heart sound present and S2 normal heart sound present Peripheral pulses: Peripheral pulses 2+ throughout GI: Inspection: normal to inspection Auscultation: normal bowel sounds Rectal Exam: deferred : General: Yes no CVA tenderness Urinary Catheter: Urinary Catheter: patent and draining Back/Spine/Pelvis: Back: no CVA tenderness Cervical Spine: cervical ROM normal Thoracic/Lumbar Spine: thoracic and lumbar spine normal to inspection Pelvis: no pain with anterior-posterior compression Skin: General skin exam: normal color and wounds noted Lesions: no lesions Rashes: no rashes Trauma: no lacerations or abrasions Wounds: no wounds and wounds noted Hair: normal and general thinning Nails: normal Other: scattered bruising Neuro: General: oriented to person, oriented to place, oriented to time and patient oriented x3 Cranial nerves: Yes Equal, round and reactive pupils present, Yes Normal hearing present and Yes hard
== END 2022-10-15 15:21 | DRG 913 ==
LOC: ANHED 18:59 → ANHIMU 19:49
PROVIDERS: Family Medicine; Internal Medicine; Nurse Practitioner; Admitting Provider Family Medicine; Emergency Provider Physician Assistant; PCP Family Medicine; Visit Provider Chiropractor
DX: S09.90XA Unspecified injury of head, initial encounter (principal); L89.323 Pressure ulcer of left buttock, stage 3; R33.9 Retention of urine, unspecified; L89.622 Pressure ulcer of left heel, stage 2; L89.150 Pressure ulcer of sacral region, unstageable; L89.512 Pressure ulcer of right ankle, stage 2; M25.461 Effusion, right knee; D72.829 Elevated white blood cell count, unspecified; D50.9 Iron deficiency anemia, unspecified; E87.6 Hypokalemia; E03.9 Hypothyroidism, unspecified; F41.9 Anxiety disorder, unspecified; F32.A Depression, unspecified; F03.90 Unspecified dementia, unspecified severity, without behavioral disturbance, psychotic disturbance, mood disturbance, and anxiety; M85.861 Other specified disorders of bone density and structure, right lower leg; M11.261 Other chondrocalcinosis, right knee; R77.8 Other specified abnormalities of plasma proteins; W18.30XA Fall on same level, unspecified, initial encounter; Z74.01 Bed confinement status; Z87.440 Personal history of urinary (tract) infections; Z98.49 Cataract extraction status, unspecified eye; Z66 Do not resuscitate; Z79.82 Long term (current) use of aspirin; Z97.8 Presence of other specified devices
CPT/HCPCS: 36415; 70450; 71046; 72125; 73564; 80048; 80053; 81001; 82550; 83605; 83735; 84443; 84484; 85025; 85027; 85610; 85730; 87040; 87086; 87088; 92610; 93005; 93306; 93970; 96365; 99285; A9270; G0378; J0696; J1644; J7030